=== PATIENT | female | born 2000 | race Caucasian/White ===

== ENCOUNTER 2022-07-22 20:51 | Observation (INO) | payer SELFPAY ==
[2022-07-22] VITALS (7 sets, daily range): BP systolic 106–137; BP diastolic 55–117; PULSE 77–162; RESP 16; TEMP 36.8
--- NOTE | 2022-07-22 20:51 | OBADM ---
This patient, Betzy Boyd, admitted to the OB room [facility] for observation. Patient/family oriented to hospital policies and general routines including ID bracelet, bed and alarms, visiting hours, pain management, procedures, bathroom and other care routines, personal items, smoking policy, room service/diet, and visiting hours. Patient/Family are encouraged to report perceived risks to care and to ask questions if they do not understand what they are told or what they should do.
--- NOTE | 2022-07-22 21:16 | PC.NURSE ---
Patient arrived to OB unit from ED via wheelchair. Upon initial assessment VSS. Patient complaint of right sided abdominal pain/pressure throughout the day today. Patient states she thinks that she may have lost her mucous plug today. Abdomen palpates soft, active movement palpated during placement of monitors and was audible during monitoring. Patient appears unsure when answering questions about her medical history and PNC with current . Patient looks to significant other for assistance in answering questions and reassurance with answers. Patient declines any significant medical history. Patient reports history of anxiety. Patient reports current medications at [facility]. Patient states she has had 2 appointments with an OB in [place] for current , but states she cannot remember the name of the provider. Patient reports current is her second , she states she has had 1 previous that ended in miscarriage. Patient reports she feels safe at home. Patient states she is currently visiting the area for 3 days and will be relocating to [place]. Patient declines needing any assistance or support for food, housing, medical care or transportation.
[2022-07-22 21:57] LABS: Appearance Urine Cloudy (Clear); Bacteria Urine Rare /hpf; Bilirubin Urine Negative (Negative); Blood Urine Negative (Negative); Color Urine Yellow (Yellow); Glucose Urine UA Negative (Negative); Ketones Urine Negative (Negative); Leukocyte Esterase Ur Negative LEU/UL (Negative); Nitrate Urine Negative (Negative); Non Pathogenic Casts 0-2; Protein Urine Negative (Negative); RBC Urine 0-2 /hpf (0-2); Specific Grav Ur 1.021 (1.001-1.035); Squamous Epithelial Cell Urine Moderate /hpf (Few); WBC Urine 0-5 /hpf; pH Urine 6.5 (5.0-9.0)
[2022-07-22 22:04] LABS: Add Urine Microscopic? YES
--- NOTE | 2022-07-22 22:05 | PC.NURSE ---
This nurse notified Darius Wolfe CNM of maternal and assessments, VS and patient UDS and UA results. Order received for CBC STAT and 1000mg PO tylenol now for pain.
[2022-07-22 22:09] LABS: Amphetamine Screen Urine Negative (Negative); Barbiturate Screen Urine Negative (Negative); Benzodiazepines Screen Urine Negative (Negative); Cannabinoid Screen Urine Negative (Negative); Cocaine Screen Urine Negative (Negative); Methadone Screen Urine Negative (Negative); Opiate Screen Urine Negative (Negative); Phencyclidine Screen Urine Negative (Negative)
--- NOTE | 2022-07-22 22:15 | PC.NURSE ---
Automatic BP assessed while patient was eating and moving her arm. This RN went to bedside to evaluate elevated BP reading. Patient resting comfortably. BP was reevaluated to be WNL.
[2022-07-22] MEDS: ACETAMINOPHEN 500 MG TABLET 1000 MG PO (22:26)
--- NOTE | 2022-07-22 22:53 | PC.NURSE ---
This RN received a call from Taty in laboratory stating that the CBC that was collected had clotted while it was sitting in the tube system waiting to be analyzed. This RN was notified that a new CBC would need to be collected.
[2022-07-22 23:05] LABS: Basophils Absolute Auto 0.1 K/mm3 (0.0-0.1); Eosinophils Absolute Auto 0.2 K/mm3 (0-0.3); Eosinophils Percent Auto 1.8 % (0-4.4); Hemoglobin 11.5 g/dL (12.0-15.0); Immature Granulocyte Absolute 0.11 K/mm3 (0.00-0.031); Immature Granulocyte Percent A 0.9 % (0-0.5); Lymphocytes Absolute Auto 2.43 K/mm3 (0.9-3.2); Lymphocytes Percent Auto 19.2 % (18.3-44.2); Mean Corpuscular HGB Conc 33.8 g/dl (32-36); Mean Corpuscular Volume 97.7 fl (80-100); Mean Platelet Volume 8.6 fl (7.4-10.4); Monocytes Absolute Auto 0.8 K/mm3 (0.1-0.6); Monocytes Percent Auto 6.3 % (2.6-8.5); Neutrophils Percent Auto 70.8 % (45.5-73.1); Platelet Count Result 338 k/mm3 (150-375); Red Blood Count 3.48 M/mm3 (4.2-5.4); Red Cell Distribution Width 12.8 % (11.5-14.5); White Blood Count 12.7 K/mm3 (4.5-10.0)
--- NOTE | 2022-07-22 23:15 | PC.NURSE ---
This nurse notified Darius Wolfe CNM of CBC results. Patient states pain is now resolved following Tylenol. Patient rates pain 0/10. Discharge orders received.
--- NOTE | 2022-07-22 23:25 | PC.NURSE ---
This nurse reviewed discharge instructions and education with patient. labor precautions reviewed and a educational handout was provided to patient. precautions and education reviewed with patient. Patient diet reviewed and patient encouraged to increase fluid intake during . Patient instructed to call and establish care with an OB in the [place] area where she will be moving this week, patient instructed to make an appointment to be seen this week by the OB she would like to establish care with in [place]. Patient provided time to ask questions and all questions were answered by this RN. Patient and significant other state an full understanding of all discharge instructions and education and deny any further questions. Patient and significant other request assistance with a ride to where they are staying, RN states she will talk to warehouse shipping receiving clerk to see if we are able to provide them assistance.
--- NOTE | 2022-07-22 23:32 | PC.NURSE ---
This RN spoke with Kim the melt house drag operator about patient request for assistance with transportation to where they are staying. Patient utilized the public bus for transportation to our ED for evaluation and is not from the area and has no access to a car. Public transportation does not start until 0500 so patient does not have transportation home after discharge. Kim states that if OB director approves the charge we may call for a cab for transportation. The charge nurse MAC Benedict spoke with Victorina Chen the college or [employer] department head who approved the charge of the cab. The zipper machine operator was notified of the need for cab transportation. The zipper machine operator stated that the cab would arrive at the hospital within 20 minutes to transport patient and significant other to where they are currently staying.
--- NOTE | 2022-07-24 18:45 | PM.OBTRLD ---
OB - Triage/Final Diagnosis Visit Information Date of evaluation: 07/22/22 Reason for evaluation: threatened labor Comments/Additional reasons for admission: I have assessed the risk for this patient, Betzy Boyd, and determined that she would benefit from observation care. Evaluation Laboratory results: Laboratory Tests 07/22/22 07/22/22 07/22/22 21:36 21:37 23:00 WBC 12.7 H RBC 3.48 L Hgb 11.5 L Hct 34.0 L MCV 97.7 MCH 33.0 MCHC 33.8 RDW 12.8 Plt Count 338 MPV 8.6 Immature Gran % (Auto) 0.9 H Neut % (Auto) 70.8 Lymph % (Auto) 19.2 [place] % (Auto) 6.3 Eos % (Auto) 1.8 Baso % (Auto) 1.0 Lymph # (Auto) 2.43 [place] # (Auto) 0.8 H Eos # (Auto) 0.2 Baso # (Auto) 0.1 Abs Immat Gran (auto) 0.11 H Absolute Neuts (auto) 9.0 H Absolute Nucleated RBC 0.0 Nucleated RBC % 0.0 Urine Color Yellow Urine Appearance Cloudy H Urine pH 6.5 Ur Specific [place] 1.021 Urine Protein Negative Urine Glucose (UA) Negative Urine Ketones Negative Ur Blood (Man) Negative Urine Nitrate Negative Urine Bilirubin Negative Urine Urobilinogen 1.0 Leukocyte Esterase Rfl Negative Urine RBC 0-2 Urine WBC 0-5 Ur Squamous Epith Cells Moderate Urine Bacteria Rare Urine Casts 0-2 Urine Opiates Screen Negative Urine Methadone Screen Negative Ur Barbiturates Screen Negative Ur Phencyclidine Scrn Negative Ur Amphetamine Screen Negative U Benzodiazepines Scrn Negative Urine Cocaine Screen Negative U Cannabinoids Screen Negative
== END 2022-07-23 00:10 | disposition home or self-care (01) ==
PROVIDERS: Advanced Practice Midwife; Admitting Provider Obstetrics & Gynecology; Visit Provider Obstetrics & Gynecology
DX: O47.02 False labor before 37 completed weeks of gestation, second trimester (principal); Z3A.23 23 weeks gestation of pregnancy
CPT/HCPCS: 36415; 59025; 80307; 81001; 85025; A9270; G0378; G0379